=== PATIENT | male | born 1965 | race Asian ===

== ENCOUNTER 2019-12-19 07:40 | Day surgery (SDC) | payer OTHER ==
[2019-12-19] VITALS (9 sets, daily range): BP systolic 93–157; BP diastolic 59–92
[~2019-12-19] VITALS: Ht 175.3 cm; Wt 88.5 kg
[~2019-12-19 07:40] MED LIST: Midazolam 2mg/2ml Inj ONE; fentaNYL 100 mcg/2 mL IV ONE
--- NOTE | 2019-12-19 07:50 | Short Stay Surgery H&P ---
History of Present Illness History of Present Illness Chief Complaint Abdominal pains/GERDs HPI Doc Martin is a 54 year old male who was admitted on for Abd Pain, Gastroesophageal Reflux Disease. Patient History PAST MEDICAL HISTORY: (1) Hyperlipidemia (2) Hypertension Review of Systems Cardiovascular: Reports: hypertension Respiratory: Reports: no symptoms Skeletal: Reports: trauma Gastrointestinal: Reports: gastro esophageal reflux disease Genitourinary: Reports: no symptoms Neurologic: Reports: no symptoms Endocrine: Reports: no symptoms Hematologic: Reports: no symptoms Physical Exam Skin: normal HENT: normal Heart: normal Lungs: normal Abdomen: abnormal Extremities: normal Genitourinary: normal Plan Plan of Care Upper GI. Endoscopy with biopsy. Preop Interventions None. Summary of Findings See the report. Attestation Are the patient's medical conditions optimized for surgery? Attestation Response: yes Blaise Elder MD Dec 19, 2019 07:49
--- NOTE | 2019-12-19 07:51 | Pre-Procedure Note/Attestation ---
Pre-Procedure Note/Attestation Complete Prior to Procedure Planned Procedure: left Procedure Narrative: Examination of the Upper GI. tract via endoscopy with obtaining biopsy. Indications for Procedure Pre-Operative Diagnosis: R/O Peptic Ulcer/Gastritis/esophagitis. Attestation I attest that I discussed the nature of the procedure; its benefits; risks and complications; and alternatives (and the risks and benefits of such alternatives), prior to the procedure, with the patient (or the patient's legal territory service representative). I attest that, if there was a reasonable possibility of needing a blood transfusion, the patient (or the patient's legal territory service representative) was given the [facility] standardized written summary, pursuant to the [place] Blood Safety Act ([place] Health and Safety Code # 1645, as amended). I attest that I re-evaluated the patient just prior to the surgery and that there has been no change in the patient's H&P, except as documented below: Blaise Elder MD Dec 19, 2019 07:51
--- NOTE | 2019-12-19 07:59 | Anethesia Preoperative Eval ---
Anesthesia Pre-op PMH/ROS General Date of Evaluation: Dec 19, 2019 Time of Evaluation: 07:56 Anesthesiologist: Genny ASA Score: ASA 2 Mallampati Score Class I : Soft palate, uvula, fauces, pillars visible Class II: Soft palate, uvula, fauces visible Class III: Soft palate, base of uvula visible Class IV: Only hard plate visible Mallampati Classification: Class II Surgeon: Terrell Diagnosis: GERD Surgical Procedure: EGD Anesthesia History: none Family History: no anesthesia problems Allergies: Coded Allergies: No Known Allergies (Unverified , 12/19/19) Medications: see eMAR Patient NPO?: Yes Past Medical History Cardiovascular: Denies: HTN, CAD, MO, valve dz, arrhythmia, other Pulmonary: Denies: asthma, COPD, LISSET, other Gastrointestinal/Genitourinary: Reports: GERD; Denies: CRI, ESRD, other Neurologic/Psychiatric: Denies: dementia, CVA, depression/anxiety, TIA, other Endocrine: Denies: DM, hypothyroidism, steroids, other HEENT: Denies: cataract (L), cataract (R), glaucoma, EAGLE (L), EAGLE (R), other Hematology/Immune: Denies: anemia, DVT, bleeding disorder, other Musculoskeletal/Integumentary: Reports: DDD; Denies: OA, RA, DJD, edema, other Other: other PMH Narrative: as above PSxH Narrative: None Anesthesia Pre-op Phys. Exam Physician Exam Constitutional: NAD Neurologic: CN 2-12 intact Cardiovascular: RRR, no M/R/G Respiratory: CTA Gastrointestinal: S/NT/ND Airway Exam Mallampati Score: Class II MO: full Neck: flexible ROM: full Teeth: intact Dentures: no upper, no lower Anesthesia Pre-op A/P Labs see chart Studies Pre-op Studies: EKG - sr Risk Assessment & Plan Assessment: ASA 2 Plan: MAC Status Change Before Surgery: Julio César Washington MD Dec 19, 2019 07:58
[2019-12-19] MEDS ORDERED: LR 1000ml ONE (08:00)
[2019-12-19] MEDS ORDERED: SIMVASTATIN10 MG ORAL (08:13)
--- NOTE | 2019-12-19 08:24 | Endoscopy Procedure Note ---
Endoscopy Procedure Note General Indication for Procedure: Abdominal pains/GERDs Procedures Performed: EGD - Normal Upper GI. endoscopy. Random biopsy obtained from gastric body. Specimen: yes Pt Tolerated Procedure Well: Yes Estimated Blood Loss: none Anesthesia Anesthesiologist: Dr. Gonzales Anesthesia: moderate sedation Medications Medication Given: see anesthesia record Inserted Devices Implant(s) used?: No Quality Quality of Bowel Preparation: Excellent Was there any complications?: No GI Core Measures 50 yrs or older w/o bx or poly: Not Applicable 10yrs. F/U recommended: Not Applicable If not recommended, why?: Med reason:<3 yrs.: System Reason:<3 yrs.: Blaise Elder MD Dec 19, 2019 08:24
--- NOTE | 2019-12-19 08:26 | Discharge Instructions ---
Discharge Instructions Discharge Instructions Follow up with: Make appointment with the doctor after 2 weeks For Congestive Heart Failure Reminder Report to your physician any weight gain of 5 pounds or more in one week. Blaise Elder MD Dec 19, 2019 08:25
--- NOTE | 2019-12-19 08:26 | Discharge Instructions ---
Discharge Instructions Discharge Instructions Follow up with: See the doctor after 2 weeks, call fo appointment For Congestive Heart Failure Reminder Report to your physician any weight gain of 5 pounds or more in one week. Balise Elder MD Dec 19, 2019 08:26
--- NOTE | 2019-12-19 08:34 | Immediate Post-Op Evaluation ---
Immediate Post-Op Evalulation Immediate Post-Op Evalulation Procedure: EGD with BX Date of Evaluation: Dec 19, 2019 Time of Evaluation: 08:33 IV Fluids: 400 Blood Products: none Estimated Blood Loss: none Urinary Output: none Blood Pressure Systolic: 104 Blood Pressure Diastolic: 56 Pulse Rate: 72 Respiratory Rate: 20 O2 Sat by Pulse Oximetry: 99 Temperature (Fahrenheit): 97.6 Pain Score (1-10): 1 Nausea: No Vomiting: No Complications none Patient Status: awake, patent, none Hydration Status: adequate Julio César Royal MD Dec 19, 2019 08:34
--- NOTE | 2019-12-19 09:00 | Operative Note - Dictated ---
DATE OF OPERATION: 12/19/2019 SURGEON: Blaise Elder MD. PROCEDURE: Esophagogastroduodenoscopy with biopsy. PREOPERATIVE DIAGNOSIS: Abdominal pain, history of chronic gastroesophageal reflux. POSTOPERATIVE DIAGNOSIS: Completely normal upper GI endoscopy and biopsy was taken per random from gastric body. MEDICATION USED: Per Dr. Royal, anesthesiologist. INSTRUMENT: GIF Olympus upper GI video endoscope. DESCRIPTION OF PROCEDURE: The patient after arriving in the endoscopy unit, was told about risks and benefits of the procedure, which he accepted and signed informed consent. He was then put on the left lateral decubitus position. After adequate IV sedation, the scope was gently passed through the cricopharyngeal area, was lodged into the upper esophagus and was gradually advanced towards gastroesophageal junction. The entire length of the esophagus was completely normal. No evidence of varices, inflammatory process, ulceration, stricture, etc. found. GE junction also was completely normal. No evidence of Rizo's or hiatal hernia. At this time, the scope was advanced into the stomach. Gastric cavity was distended with insufflation of air. Gradually, the areas of the fundus and the body and the antrum were examined and did reveal evidence of normal gastric mucosa without any ulceration noted. There was no any evidence of bleeding or polyps, etc. At this point, a retroflexion maneuver was applied and the area of the gastroesophageal junction was examined in a closer fashion, which revealed completely normal findings. Finally, after obtaining a random biopsy from gastric body, scope was gradually advanced towards the antrum and from there into pylorus. First and second portion of duodenum were found to be completely normal. At this time, the scope was pulled out and the procedure was terminated. The patient tolerated the procedure well and left the endoscopy room in good condition. Blaise Elder M.D. DR: SCARLETT JOB#: [id number] CC:
--- NOTE | 2019-12-19 10:19 | 48 Hour Post Anesthesia Eval ---
Post Anesthesia Evaluation Procedure: EGD with BX Date of Evaluation: Dec 19, 2019 Time of Evaluation: 10:17 Blood Pressure Systolic: 121 0: 76 Pulse Rate: 68 Respiratory Rate: 18 Temperature (Fahrenheit): 97.6 O2 Sat by Pulse Oximetry: 98 Airway: patent Nausea: No Vomiting: No Pain Intensity: 1 Hydration Status: adequate Cardiopulmonary Status: stable Mental Status/LOC: patient returned to baseline Follow-up Care/Observations: n/a Post-Anesthesia Complications: none Follow-up care needed: ready to discharge Julio César Royal MD Dec 19, 2019 10:19
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
== END 2019-12-19 09:25 | disposition home or self-care (01) ==
LOC: SUR 07:40
DX: R10.9 Unspecified abdominal pain (principal); K21.9 Gastro-esophageal reflux disease without esophagitis; I10 Essential (primary) hypertension; E78.5 Hyperlipidemia, unspecified; Z80.0 Family history of malignant neoplasm of digestive organs; Z79.899 Other long term (current) drug therapy
CPT/HCPCS: 43239; 94003; J2250; J2704; J3010; J7120; U0002; 94150